=== PATIENT | male | born 1945 | race American Indian/Alaskan Native ===

== ENCOUNTER 2018-06-30 10:36 | Day surgery (SDC) | payer MEDICARE ==
--- NOTE | 2018-06-30 11:17 | Anesthesia Consultation ---
Anesthesia Consult and Med Hx Date of service: 06/30/18 - Airway Anesthetic Teeth Evaluation: Good ROM Head & Neck: Adequate Mental/Hyoid Distance: Adequate Mallampati Class: Class III Intubation Access Assessment: Probably Good - Pulmonary Exam CTA: Yes - Cardiac Exam Cardiac Exam: RRR - Pre-Operative Health Status ASA Pre-Surgery Classification: ASA3 Proposed Anesthetic Plan: General - Pulmonary Hx Smoking: No COPD: No Hx Sleep Apnea: No ([facility] PRE SCREEN HIGH RISK) - Cardiovascular System Hx Hypertension: Yes Hx Heart Attack/AMI: No - Central Nervous System Hx Seizures: Yes (ON DAILY MEDS- LAST SEIZURE 2 1/2 YRS AGO) CVA: No - Gastrointestinal Hx Gastroesophageal Reflux Disease: No - Endocrine Hx Renal Disease: No Hx Liver Disease: No Hx Insulin Dependent Diabetes: No Hx Thyroid Disease: No - Other Systems Hx Alcohol Use: Yes (4 BEERS QDay; denies withdrawal symptoms when stopping)
[2018-06-30] MEDS ORDERED: DILAUDID IV PRN (11:18)
--- NOTE | 2018-06-30 11:18 | Anesthesia Day of Surgery ---
Anesthesia Day of Surgery - Day of Surgery Patient Examined: Yes Patient H&P Reviewed: Yes Patient is NPO: Yes
[2018-06-30] MEDS ORDERED: VERSED IV NR (12:00)
[2018-06-30] MEDS ORDERED: LACTATED RINGERS 1,000 ML IV SCH (12:00)
[2018-06-30] MEDS ORDERED: ANCEF/STERILE WATER 2 GM/20 ML IV NR (12:00)
[2018-06-30] MEDS ORDERED: XYLOCAINE MPF 2% ONE (13:08)
[2018-06-30] MEDS ORDERED: DIPRIVAN 10 MG/ML IV ONE (13:08)
[2018-06-30] MEDS ORDERED: SUBLIMAZE ONE ×2 (13:09→13:52)
[2018-06-30] MEDS ORDERED: ZOFRAN ONE (13:17)
[2018-06-30] MEDS ORDERED: WATER FOR IRRIG STERILE IR ONE (13:46)
[2018-06-30] MEDS ORDERED: ANCEF/STERILE WATER 2 GM/20 ML 2 GM/20 ML SYRINGE IV NR (14:00)
[2018-06-30] MEDS ORDERED: LASIX ONE (14:58)
--- NOTE | 2018-06-30 15:10 | Post Operative Note ---
Date of procedure: 06/30/18 Pre-op diagnosis: ca prostate Post-op diagnosis: same Findings: ca p Procedure: cysto cryo ablation prostate Anesthesia: GETA Surgeon: GAMAL FARMER Estimated blood loss: minimal Pathology: none Condition: stable Disposition: PACU
--- NOTE | 2018-06-30 15:11 | Discharge Summary ---
Short Stay Discharge Plan Activity: other (no straining ) Weight Bearing Status: Full Weight Bearing Diet: regular, low salt Wound: other (ice to perineum in rr ) Special Instructions: other (turner care ) Durable Medical Equipment Needed Upon Discharge: other (turner ) Follow up with: PRIMARY CARE, [Primary Care Provider] - 7 Days GAMAL FARMER MD [Staff Physician] - 07/05/18
[2018-06-30] MEDS: DILAUDID IV PRN ×4 (15:15→16:34)
--- NOTE | 2018-06-30 15:24 | Post Anesthesia Evaluation ---
- Post Anesthesia Evaluation Patient Participated: Yes Airway Patent: Yes Stable Respiratory Function: Yes Nausea/Vomiting: No Temp > 96.8F: Yes Pain Manageable: Yes Adequeate Hydration: Yes Anesthesia Complications: No
[2018-06-30] MEDS: NORMODYNE IV PRN ×3 (15:50→16:20)
[2018-06-30] MEDS: APRESOLINE IV PRN ×2 (16:26→16:33)
--- NOTE | 2018-06-30 18:51 | Operative Report ---
PREOPERATIVE DIAGNOSIS: Adenocarcinoma of the prostate. POSTOPERATIVE DIAGNOSES: Adenocarcinoma of the prostate. PROCEDURE: Cystoscopy, cryosurgical ablation of prostate. SURGEON: Stew Aleman MD ANESTHESIA: General. FINDINGS: This is a gentleman with significant prostate cancer. He refused radical prostatectomy or radiation, now presents for cryoablation. All risks and implications discussed. DESCRIPTION OF PROCEDURE: The patient was brought to the operating room and placed on the operating table. Following induction of anesthesia, placed in the lithotomy position, prepped and draped in usual sterile fashion. At this point, a Schulte catheter was placed. The scrotum was elevated and ultrasound showed excellent visualization of the prostate. Prostate was small, about 20 g. Probes 1 and 2 were placed, and then 5 and 6 and 3 and 4. The gland moved significantly, 1 and 2 were placed, so we had to readjust under different images to place the other probes. It should be noted after probes 1 and 2 were placed, we placed Denonvilliers, probe in good position. There was very high rectourethralis, so we had to get over that and we also placed the sphincter. After that, we placed 5 and 6 and 3 and 4. The patient tolerated the procedure well. Because of the movement of the gland, probe #2 became 4 and 4 became 2 on the screen. The patient tolerated the procedure well. Excellent placement of the probes. We measured from 2.5-3 cm in length of the freeze. At this point, once we checked in multiple planes, cystoscopy showed no urethral injury. We placed the rigid wire and the warming catheter, which was functioning great. We secured the warming catheter and the freeze was carried out starting at 40% and we saw the freeze was more prominent on the right side, it was going down quicker because of the smaller aspect of the tissue on that side. A smaller amount of tissue on that side and so then we coiled up by lowering the right side and increasing the left. The patient tolerated the procedure well. We carried it down to the lower probes in a symmetrical fashion, had an excellent freeze and then approximately a 7-minute thaw and then a second freeze was carried out in a similar fashion after we rechecked the probes. We had the second thaw and warming for about 28 minutes and then put a 20 coude catheter, which was draining clear. The patient tolerated the procedure well. No significant complications, brought to recovery in stable condition. JOB# [id number] DIAMOND/MARLENE
[2018-06-30 21:20] VITALS: BP 140/86
== END 2018-06-30 18:45 | disposition home or self-care (01) ==
LOC: OR 10:36
PROVIDERS: ATTEND Urology
DX: C61 Malignant neoplasm of prostate (principal); I10 Essential (primary) hypertension; G47.30 Sleep apnea, unspecified; Z79.899 Other long term (current) drug therapy; Z72.89 Other problems related to lifestyle; Z98.42 Cataract extraction status, left eye; Z98.41 Cataract extraction status, right eye; Z80.42 Family history of malignant neoplasm of prostate
CPT/HCPCS: 36415; 55873; 84132; A4217; C2618; J0360; J0690; J1170; J1940; J2250; J2405; J2704; J3010; J7120